=== PATIENT | female | born 1975 | race African-American/Black ===

== ENCOUNTER 2016-05-18 19:35 | Emergency (ER) | payer MEDICAID, OTHER ==
[~2016-05-18 19:35] MED LIST: IBUP800T23 PO; ROBA750T PO
[2016-05-18 19:57] VITALS: BP 131/73; PULSE 55; RESP 16; TEMP 97.8; O2SAT 100
[2016-05-18] MEDS ORDERED: SODIUM CHLOR 0.9% 1000 ML INJ 1,000 ML IV ONE (21:20)
[2016-05-18] MEDS ORDERED: PROCHLORPERAZINE INJ 10 MG/2 ML VIAL IVP ONE (21:30)
[2016-05-18] MEDS ORDERED: diphenhydrAMINE HCL 50 MG/ML VIAL IVP ONE (21:30)
--- NOTE | 2016-05-18 21:41 | PD ---
HPI Chief Complaint: Headache Time Seen by Provider: 21:37 Travel History International Travel<30 days: No Contact w/Intl Traveler<30days: No Traveled to known affect area: No History of Present Illness HPI 41-year-old female that presents to the ED for evaluation of headache. Patient states that she has a history migraine headaches and this feels similar to her usual migraines. Per patient the headache is severe 7 out of 10. Causes photophobia. Per patient she's had a headache since early this morning. Per patient she had to work today showed she was not able to take her usual medication for her migraine headaches which usually Excedrin. Per patient she was able to get out of work and when she went home she took a Lortab with some food and she went to take a shower. Per patient after the shower she started feeling very lightheaded as if the room was spinning. Per patient she started to feel nauseous and she went into the toilet and threw up in all she can remember is that she started feeling weak and apparently one of her family members contacted the embolus at the time as she apparently passed out. She states that overall her headache feels the same with the exception that she feels like she is spinning tach comes and goes. She states that she has had no fevers chills or sweats. She states that she has had Lortab in the past. Per patient her headache currently say 10. Amylase has not given her anything other than fluids. She does have allergies to aspirin, dilaudid, PTU, penicillin, Reglan and Synthroid. She denies any numbness, tilling, weakness. PFSH Past Medical History Diminished Hearing: No GERD: Yes Genitourinary: Yes (H/O KIDNEY AND UTI) Headaches: Yes Hypertension: Yes Immunizations Current: Yes Migraines: Yes Thyroid Disease: Yes (HYPERTHYROID/TREATED WITH IODINE RADIATION 09/08) PNEUMOCCOCAL Vaccine (Year): 2 ?: Not : 2 Para: 2 Tubal Ligation: Yes Past Surgical History Section: Yes (X 2) Gynecologic Surgery: Yes (C-SECT X 2) Other Surgery: Yes (LYMPH NODE BIOPSY R BREAST.) Social History Alcohol Use: Yes (OCCASSIONAL) Tobacco Use: No Substance Use: No Allergies-Medications (Allergen,Severity, Reaction): Coded Allergies: Aspirin (Verified Allergy, Severe, HEADACHE, 4/12/17) Dilaudid (Verified Allergy, Severe, ITCHING, 05/18/16) Penicillin (Verified Allergy, Severe, Anaphylaxis, 05/18/16) Reglan (Verified Allergy, Severe, 05/18/16) Synthroid (Verified Allergy, Severe, 05/18/16) Uncoded Allergies: PTU (Allergy, Severe, 03/17/11) Reported Meds & Prescriptions Reported Meds & Active Scripts Active Robaxin (Methocarbamol) 750 Mg Tab 750 Mg PO QID PRN 2 tabs QID for 2 days, then 1 tab QID thereafter Ibuprofen 800 Mg Tab 800 Mg PO Q8H Review of Systems Except as stated in HPI: all other systems reviewed are Neg Physical Exam Narrative GENERAL: SKIN: Warm and dry. HEAD: Atraumatic. Normocephalic. EYES: Pupils equal and round 4 mm reactive to light and accommodation.. No scleral icterus. No injection or drainage. ENT: No nasal bleeding or discharge. Mucous membranes pink and moist. Tongue is midline. No uvula deviation. NECK: Trachea midline. No JVD. CARDIOVASCULAR: Regular rate and rhythm. No murmurs, S3, S4. RESPIRATORY: No accessory muscle use. Clear to auscultation. Breath sounds equal bilaterally. GASTROINTESTINAL: Abdomen soft, non-tender, nondistended. Hepatic and splenic margins not palpable. MUSCULOSKELETAL: Extremities without clubbing, cyanosis, or edema. No obvious deformities. Full range of motion of the upper and lower extremities bilaterally. 2+ pulses bilaterally. No lumbar, thoracic, cervical spine tenderness to palpation. NEUROLOGICAL: Awake and alert. No obvious cranial nerve deficits. Motor grossly within normal limits. Five out of 5 muscle strength in the arms and legs. Normal speech. PSYCHIATRIC: Appropriate mood and affect; insight and judgment normal. Data Data Last Documented VS Vital Signs Date Time Temp Pulse Resp B/P Pulse Ox O2 Delivery O2 Flow Rate FiO2 05/18/16 20:46 18 100 05/18/16 19:57 97.8 55 131/73 Orders Complete Blood Count With Diff (05/18/16 21:20) Basic Metabolic Panel (Bmp) (05/18/16 21:20) Prothrombin Time / Inr (Pt) (05/18/16 21:20) Act Partial Throm Time (Ptt) (05/18/16 21:20) Ct Brain W/O Iv Contrast(Rout) (05/18/16 21:20) Ecg Monitoring (05/18/16 21:20) Iv Access Insert/Monitor (05/18/16 21:20) Oximetry (05/18/16 21:20) Prochlorperazine Inj (Compazine Inj) (05/18/16 21:30) Diphenhydramine Inj (Benadryl Inj) (05/18/16 21:30) Sodium Chlor 0.9% 1000 Ml Inj (Ns 1000 M (05/18/16 21:20) Troponin I (05/18/16 21:20) Electrocardiogram (05/18/16 ) Lorazepam Inj (Ativan Inj) (05/18/16 21:45) Ketorolac Inj (Toradol Inj) (05/18/16 22:00) Labs Laboratory Tests Test 05/18/16 21:45 White Blood Count 6.6 TH/MM3 Red Blood Count 3.94 MIL/MM3 Hemoglobin 8.3 GM/DL Hematocrit 27.4 % Mean Corpuscular Volume 69.4 FL Mean Corpuscular Hemoglobin 21.2 PG Mean Corpuscular Hemoglobin 30.5 % Concent Red Cell Distribution Width 16.4 % Platelet Count 318 TH/MM3 Mean Platelet Volume 7.5 FL Neutrophils (%) (Auto) 72.7 % Lymphocytes (%) (Auto) 18.7 % Monocytes (%) (Auto) 7.2 % Eosinophils (%) (Auto) 0.5 % Basophils (%) (Auto) 0.9 % Neutrophils # (Auto) 4.8 TH/MM3 Lymphocytes # (Auto) 1.2 TH/MM3 Monocytes # (Auto) 0.5 TH/MM3 Eosinophils # (Auto) 0.0 TH/MM3 Basophils # (Auto) 0.1 TH/MM3 CBC Comment AUTO DIFF Sodium Level 141 MEQ/L Potassium Level 3.9 MEQ/L Chloride Level 105 MEQ/L Carbon Dioxide Level 28.6 MEQ/L Anion Gap 7 MEQ/L Blood Urea Nitrogen 9 MG/DL Creatinine 1.05 MG/DL Estimat Glomerular Filtration 70 ML/MIN Rate Random Glucose 103 MG/DL Calcium Level 8.0 MG/DL Troponin I LESS THAN 0.02 NG/ML MDM Medical Decision Making Medical Screen Exam Complete: Yes Emergency Medical Condition: Yes Medical Record Reviewed: Yes Interpretation(s) CBC & BMP Diagram 05/18/16 21:45 EKG shows sinus rhythm with no sign of acute ischemia or arrhythmia. Troponin negative Last Impressions Head CT 05/18/162119 Signed Impressions: Service Date/Time: Wednesday, May 18, 2016 21:31 - CONCLUSION: No acute intracranial abnormality. Mild sinus disease. Edison Cohen MD Differential Diagnosis Migraine headache versus tension headache versus vertigo versus dehydration versus syncope versus presyncope Narrative Course 41-year-old female that presents to the ED for evaluation of migraine headache and syncope. Patient was properly examined and was found to have signs and symptoms which appeared to consistent more with migraine headache. At this time and do recommend labs and imaging. Patient was given IV fluids and IV medications. Labs and imaging for the most part unremarkable other than for anemia. Coag still pending. Case will be signed out to my attending pending disposition. Vu Toure May 18, 2016 21:41
--- NOTE | 2016-05-18 21:43 | RADRPT ---
EXAM DATE/TIME: 05/18/2016 21:31 [facility] COMPARISON: No previous studies available for comparison. INDICATIONS : Headaches. RADIATION DOSE: 38.09 CTDIvol (mGy) MEDICAL HISTORY : Hypertension. Hyperthyroidism. SURGICAL HISTORY : None. ENCOUNTER: Initial ACUITY: 1 day PAIN SCALE: 10/10 LOCATION: Bilateral cranial TECHNIQUE: Multiple contiguous axial images were obtained of the head. Using automated exposure control and adj ustment of the mA and/or kV according to patient size, radiation dose was kept as low as reasonably a chievable to obtain optimal diagnostic quality images. FINDINGS: CEREBRUM: The ventricles are normal for age. No evidence of midline shift, mass lesion, hemorrhage or acute in farction. No extra-axial fluid collections are seen. POSTERIOR FOSSA: The cerebellum and brainstem are intact. The 4th ventricle is midline. The cerebellopontine angle i s unremarkable. EXTRACRANIAL: Mild mucoperiosteal thickening and trace fluid seen of the maxillary air cells. Mild mucoperiosteal t hickening of the sphenoid air cells. SKULL: The calvaria is intact. No evidence of skull fracture. CONCLUSION: No acute intracranial abnormality. Mild sinus disease. Edison Cohen MD on May 18, 2016 at 21:40 Board Certified Radiologist. This report was verified electronically.
[2016-05-18] MEDS ORDERED: LORazepam 2 MG/ML VIAL IV PUSH ONE (21:45)
[2016-05-18] MEDS ORDERED: KETOROLAC TROMETHAMINE 30 MG/ML (IVP) VIAL IV PUSH ONE (22:00)
[2016-05-18 22:13] LABS: AUTOMATED NEUTROPHIL # 4.8 TH/MM3 (1.8-7.7); BASOPHIL # 0.1 TH/MM3 (0-0.2); BASOPHIL % 0.9 % (0.0-2.0); EOSINOPHIL % 0.5 % (0.0-4.0); HEMATOCRIT 27.4 % (35.0-46.0); LYMPH % 18.7 % (9.0-44.0); LYMPHOCYTE # 1.2 TH/MM3 (1.0-4.8); MEAN CELL VOLUME 69.4 FL (80.0-100.0); MEAN CORPUSCULAR HEMOGLOBIN 21.2 PG (27.0-34.0); MEAN CORPUSCULAR HGB CONC 30.5 % (32.0-36.0); MONO % 7.2 % (0.0-8.0); NEUT % 72.7 % (16.0-70.0); PLATELET COUNT 318 TH/MM3 (150-450); RED BLOOD COUNT 3.94 MIL/MM3 (4.00-5.30); RED CELL DISTRIBUTION WIDTH 16.4 % (11.6-17.2); WHITE BLOOD COUNT 6.6 TH/MM3 (4.0-11.0)
[2016-05-18 22:14] LABS: HEMO FLAGS AUTO DIFF
[2016-05-18 22:35] LABS: ANION GAP 7 MEQ/L (5-15); BICARBONATE 28.6 MEQ/L (21.0-32.0); BLOOD UREA NITROGEN 9 MG/DL (7-18); CHLORIDE 105 MEQ/L (98-107); GLOMERULAR FILTRATION RATE 70 ML/MIN (>89); POTASSIUM 3.9 MEQ/L (3.5-5.1); SODIUM (NA) 141 MEQ/L (136-145)
[2016-05-18 22:44] LABS: ACANTHOCYTES 1+ (NORMAL); OVALOCYTES 1+ (NORMAL); PLATELET ESTIMATE SMEAR NORMAL (NORMAL); PLATELET MORPHOLOGY NORMAL (NORMAL); SCAN/DIFF AUTO DIFF CONFIRMED
[2016-05-18 22:47] LABS: APTT (PATIENT) 20.5 SEC (24.3-30.1); PROTHROMBIN TIME - PATIENT 10.6 SEC (9.8-11.6)
--- NOTE | 2016-05-19 01:53 | PD ---
Data Data Last Documented VS Vital Signs Date Time Temp Pulse Resp B/P Pulse Ox O2 Delivery O2 Flow Rate FiO2 05/18/16 20:46 18 100 05/18/16 19:57 97.8 55 131/73 Orders Complete Blood Count With Diff (05/18/16 21:20) Basic Metabolic Panel (Bmp) (05/18/16 21:20) Prothrombin Time / Inr (Pt) (05/18/16 21:20) Act Partial Throm Time (Ptt) (05/18/16 21:20) Ct Brain W/O Iv Contrast(Rout) (05/18/16 21:20) Ecg Monitoring (05/18/16 21:20) Iv Access Insert/Monitor (05/18/16 21:20) Oximetry (05/18/16 21:20) Prochlorperazine Inj (Compazine Inj) (05/18/16 21:30) Diphenhydramine Inj (Benadryl Inj) (05/18/16 21:30) Sodium Chlor 0.9% 1000 Ml Inj (Ns 1000 M (05/18/16 21:20) Troponin I (05/18/16 21:20) Electrocardiogram (05/18/16 ) Lorazepam Inj (Ativan Inj) (05/18/16 21:45) Ketorolac Inj (Toradol Inj) (05/18/16 22:00) Labs Laboratory Tests Test 05/18/16 21:45 White Blood Count 6.6 TH/MM3 Red Blood Count 3.94 MIL/MM3 Hemoglobin 8.3 GM/DL Hematocrit 27.4 % Mean Corpuscular Volume 69.4 FL Mean Corpuscular Hemoglobin 21.2 PG Mean Corpuscular Hemoglobin 30.5 % Concent Red Cell Distribution Width 16.4 % Platelet Count 318 TH/MM3 Mean Platelet Volume 7.5 FL Neutrophils (%) (Auto) 72.7 % Lymphocytes (%) (Auto) 18.7 % Monocytes (%) (Auto) 7.2 % Eosinophils (%) (Auto) 0.5 % Basophils (%) (Auto) 0.9 % Neutrophils # (Auto) 4.8 TH/MM3 Lymphocytes # (Auto) 1.2 TH/MM3 Monocytes # (Auto) 0.5 TH/MM3 Eosinophils # (Auto) 0.0 TH/MM3 Basophils # (Auto) 0.1 TH/MM3 CBC Comment AUTO DIFF Differential Comment AUTO DIFF CONFIRMED Platelet Estimate NORMAL Platelet Morphology Comment NORMAL Ovalocytes 1+ Acanthocytes 1+ Prothrombin Time 10.6 SEC Prothromb Time International 1.0 RATIO Ratio Activated Partial 20.5 SEC Thromboplast Time Sodium Level 141 MEQ/L Potassium Level 3.9 MEQ/L Chloride Level 105 MEQ/L Carbon Dioxide Level 28.6 MEQ/L Anion Gap 7 MEQ/L Blood Urea Nitrogen 9 MG/DL Creatinine 1.05 MG/DL Estimat Glomerular Filtration 70 ML/MIN Rate Random Glucose 103 MG/DL Calcium Level 8.0 MG/DL Troponin I LESS THAN 0.02 NG/ML [facility] Medical Record Reviewed: Yes Supervised Visit with DYLAN: Yes Narrative Course I, Dr. Fields, have reviewed the advance practice practitioner's documentation and am in agreement, met with the patient face to face, made the diagnosis, and the medical decision making was done by me. *My assessment and Findings: Cephalgia Patient reevaluated, patient feeling much better. Patient reports complete resolution of symptoms at this time. Signs and symptoms of when to return to the emergency room was reviewed with patient in detail. Patient will follow-up with primary care doctor return to emergency room as needed. Diagnosis Primary Impression: Cephalgia Qualified Code: R51 - Nonintractable headache, unspecified chronicity pattern , unspecified headache type Patient Instructions: General Instructions Additional Instruction: Please follow-up with your primary care doctor Return to the emergency room as needed Med/Other Pt SpecificInfo: Prescription(s) given Disposition: 01 DISCHARGE HOME Condition: Stable Rosy Fields DO May 19, 2016 01:53
[2016-05-19 02:02] VITALS: BP 125/70
== END 2016-05-19 02:11 | disposition home or self-care (01) ==
LOC: NEPE 19:35
DX: R51 Headache (principal); R53.1 Weakness; K21.9 Gastro-esophageal reflux disease without esophagitis; I10 Essential (primary) hypertension; Z79.899 Other long term (current) drug therapy
CPT/HCPCS: 70450; 80048; 84484; 85025; 85610; 85730; 96361; 96374; 96375; 99284; J0780; J1200; J7030

== ENCOUNTER 2016-07-22 09:49 | Emergency (ER) | payer BC, MEDICAID ==
[~2016-07-22] VITALS: Ht 160 cm; Wt 86.3 kg
[2016-07-22 10:05] VITALS: BP 133/85; PULSE 78; RESP 16; TEMP 98.1; O2SAT 100
[2016-07-22 10:18] LABS: BLOOD, URINE LARGE (NEG); GLUCOSE,URINE NEG (NEG); KETONE, URINE NEG (NEG); NITRITE,URINE NEG (NEG); PH, URINE 6.5 (5.0-8.5)
[2016-07-22 10:24] LABS: METHOD OF COLLECTION CLEAN CATCH; URINE COLOR YELLOW (YELLW/STRAW)
[2016-07-22 10:25] LABS: COMMENT (UR) CULTURE INDICATED; CULTURE IF INDICATED CULTURE INDICATED; RBC, URINE INNUM /hpf (0-3); SQUAMOUS EPITHELIAL CELL URINE > 8 /hpf (0-5)
[2016-07-22] MEDS ORDERED: HYDR-3535 PO (10:30)
[2016-07-22] MEDS ORDERED: DIVA250ER PO (10:30)
[2016-07-22] MEDS ORDERED: MACR100C2 PO (10:57)
[2016-07-22] MEDS ORDERED: BUTA1CAP PO (10:57)
[2016-07-22] MEDS ORDERED: PHEN0.4T PO (10:57)
--- NOTE | 2016-07-22 10:57 | PD ---
HPI . Dysuria Chief Complaint: Complaint Time Seen by Provider: 10:49 Travel History International Travel<30 days: No Contact w/Intl Traveler<30days: No Traveled to known affect area: No History of Present Illness HPI Patient presents with the chief complaint of dysuria. Onset was last night. She has subsequently developed hematuria. She urgency with very little urine output. She has suprapubic pressure. She has not run a fever nor has she had any nausea or vomiting. She does not have any flank pain. She reports no modifying symptoms. Her discomfort is rated as 8/10. 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 PFSH Past Medical History Diminished Hearing: No GERD: Yes Genitourinary: Yes (H/O KIDNEY AND UTI) Headaches: Yes Hypertension: Yes Immunizations Current: Yes Migraines: Yes Thyroid Disease: Yes (HYPERTHYROID/TREATED WITH IODINE RADIATION 09/08) Tetanus Vaccination: Unknown PNEUMOCCOCAL Vaccine (Year): 2 ?: Not LMP: 07/16/16 : 2 Para: 2 Tubal Ligation: Yes Past Surgical History Section: Yes (X 2) Gynecologic Surgery: Yes (C-SECT X 2) Other Surgery: Yes (LYMPH NODE BIOPSY R BREAST.) Social History Alcohol Use: Yes (OCCASSIONAL) Tobacco Use: No Substance Use: No Allergies-Medications (Allergen,Severity, Reaction): Coded Allergies: Aspirin (Verified Allergy, Severe, HEADACHE, 07/22/16) Dilaudid (Verified Allergy, Severe, ITCHING, 07/22/16) Penicillin (Verified Allergy, Severe, Anaphylaxis, 07/22/16) Reglan (Verified Allergy, Severe, 07/22/16) Synthroid (Verified Allergy, Severe, 07/22/16) Uncoded Allergies: PTU (Allergy, Severe, 07/22/16) . Reported Meds & Prescriptions Reported Meds & Active Scripts Active Reported Lortab (Hydrocodone-Acetaminophen) 10-325 Mg Tab 1 Tab PO Q4H PRN Depakote ER (Divalproex Sodium) 250 Mg Michelle 250 Mg PO DAILY Review of Systems Except as stated in HPI: all other systems reviewed are Neg General / Constitutional: No: Fever, Chills Eyes: No: Blurred Vision HENT: Positive: Headaches (daily headaches for the last several months. They are unrelieved by Depakote and Lortab.) Gastrointestinal: No: Nausea, Vomiting, Diarrhea Genitourinary: Positive: Urgency, Frequency, Dysuria, Hematuria, Decreased Urinary Output Physical Exam Narrative GENERAL: Awake and alert and in no acute distress. SKIN: Warm and dry. HEAD: Atraumatic. Normocephalic. EYES: Pupils equal and round. Extraocular movements are intact. NECK: Trachea midline. Neck is supple. CARDIOVASCULAR: Regular rate and rhythm. RESPIRATORY: No accessory muscle use. GI/: No CVA tenderness. Suprapubic tenderness. MUSCULOSKELETAL: No obvious deformities. No edema. NEUROLOGICAL: Awake and alert. No obvious cranial nerve deficits. Motor grossly within normal limits. Normal speech. Normal gait. PSYCHIATRIC: Appropriate mood and affect; insight and judgment normal. Data Data Last Documented VS Vital Signs Date Time Temp Pulse Resp B/P Pulse Ox O2 Delivery O2 Flow Rate FiO2 07/22/16 10:05 98.1 78 16 133/85 100 Orders Urinalysis - C+S If Indicated (07/22/16 10:05) Ed Urine Pregnancytest Poc (07/22/16 10:05) Urine Culture (07/22/16 10:10) Labs Laboratory Tests Test 07/22/16 10:10 Urine Collection Type CLEAN CATCH Urine Color YELLOW Urine Turbidity SLIGHT Urine pH 6.5 Urine Specific [place] 1.028 Urine Protein 100 mg/dL Urine Glucose (UA) NEG mg/dL Urine Ketones NEG mg/dL Urine Occult Blood LARGE Urine Nitrite NEG Urine Bilirubin NEG Urine Leukocyte Esterase MOD Urine RBC INNUM /hpf Urine WBC 50-99 /hpf Urine Squamous Epithelial > 8 /hpf Cells Microscopic Urinalysis Comment CULTURE INDICATED Urine Collection Time 10:10 [facility] Medical Decision Making Medical Screen Exam Complete: Yes Emergency Medical Condition: Yes Differential Diagnosis Final differential diagnosis of urinary symptoms includes but is not limited to UTI, kidney stone, pyelonephritis, bacterial vaginosis, yeast infection, urinary retention Narrative Course Patient presents for treatment of a probable urinary tract infection. She also reports daily headaches which are unrelieved by Depakote and Lortab. She is interested in trying something different. Laboratory Tests Test 07/22/16 10:10 Urine Collection Type CLEAN CATCH Urine Color YELLOW Urine Turbidity SLIGHT Urine pH 6.5 Urine Specific [place] 1.028 Urine Protein 100 mg/dL Urine Glucose (UA) NEG mg/dL Urine Ketones NEG mg/dL Urine Occult Blood LARGE Urine Nitrite NEG Urine Bilirubin NEG Urine Leukocyte Esterase MOD Urine RBC INNUM /hpf Urine WBC 50-99 /hpf Urine Squamous Epithelial > 8 /hpf Cells Microscopic Urinalysis Comment CULTURE INDICATED Urine Collection Time 10:10 I will treat her UTI with Macrobid and Pyridium. I will give her a prescription for Fioricet for her headaches. She does have a follow-up appointment with her doctor next week. She will let her doctor know whether or not the Fioricet helps. Diagnosis Primary Impression: Urinary tract infection Qualified Code: N30.01 - Acute cystitis with hematuria Additional Impression: Cephalgia Qualified Code: G44.321 - Intractable chronic post-traumatic headache Patient Instructions: General Instructions, Urinary Tract Infection in Women ( [place]) Med/Other Pt SpecificInfo: Prescription(s) given Scripts [id number]-Edwvaarx (Fioricet)50-300-40 Mg Cap1-2 Cap PO Q6H PRN ( HEADACHE) #30 CAP Ref 0 Prov:Shasha Hernandez MD 07/22/16 Phenazopyridine (Pyridium)100 Mg [id number] Mg PO Q8H PRN (DYSURIA) #10 TAB Ref 0 Prov:Shasha Hernandez MD 07/22/16 Nitrofurantoin Monohydrate Macrocrystals (Macrobid)100 Mg [id number] Mg PO BID 5 Days Ref 0 Prov:Shasha Hernandez MD 07/22/16 Disposition: 01 DISCHARGE HOME Condition: Stable Shasha Hernandez MD Jul 22, 2016 10:57
== END 2016-07-22 11:04 | disposition home or self-care (01) ==
LOC: PHED 09:49 → PHEFT 11:04
DX: N30.01 Acute cystitis with hematuria (principal); G44.321 Chronic post-traumatic headache, intractable; I10 Essential (primary) hypertension; E05.90 Thyrotoxicosis, unspecified without thyrotoxic crisis or storm; B96.20 Unspecified Escherichia coli [E. coli] as the cause of diseases classified elsewhere
CPT/HCPCS: 81001; 84703; 87077; 87086; 87186; 99284

== ENCOUNTER 2016-09-15 19:48 | Emergency (ER) | payer BC, MEDICAID ==
[~2016-09-15] VITALS: Ht 160 cm; Wt 88.2 kg
[~2016-09-15 19:48] MED LIST changes: +BUTA1CAP PO; -IBUP800T23 PO; +MACR100C2 PO; +PHEN0.4T PO; -ROBA750T PO
[2016-09-15 19:57] VITALS: BP 136/89; PULSE 84; RESP 16; TEMP 98.3; O2SAT 100
[2016-09-15 20:25] VITALS: BP_SYST 125; BP_SYST 146; BP_SYST 149; BP_DIAS 88; BP_DIAS 94; BP_DIAS 96; RESP 18; RESP 20
--- NOTE | 2016-09-15 20:26 | PD ---
HPI Chief Complaint: Dizziness Time Seen by Provider: 20:17 Travel History International Travel<30 days: No Contact w/Intl Traveler<30days: No Traveled to known affect area: No History of Present Illness HPI 41-year-old female with history of anemia migraines and hypothyroidism presents to the emergency department for complaint of dizziness and heavy vaginal bleeding since yesterday. Patient states her normal menses began on Monday and typically lasts 3 days however after 3 days of bleeding she stopped bleeding and then started having heavy bleeding yesterday; reportedly at 2 AM she saturated 5 pads. Patient states she contacted her primary care physician's office and on the answering machine was told that someone would contact her within 24 hours. Patient states due to ongoing heavy vaginal bleeding she decided to come to the emergency room. Patient states she's been told by her primary care provider that she needs to have a pelvic ultrasound. Patient is 3 para 2 AB 0. Patient is status post 2 C-sections and a tubal ligation. Patient denies heavy vaginal bleeding in the past. Patient states due to heavy vaginal bleeding she has noted some dizziness today. Patient's had no near-syncope or syncope chest pain palpitations sweats or shortness of breath. Patient denies any abdominal pain or pelvic pain. Patient denies dysuria frequency or urgency. Patient's had no fever or chills. Patient rates discomfort 0/10 intensity. PFSH Past Medical History Narrative Medical Anemia, migraine, hypothyroidism, GERD, UTI; 2, tube ligation, elbow surgery, radioactive iodine treatment for hyperthyroidism; no tobacco use; nursing notes reviewed Diminished Hearing: No GERD: Yes Genitourinary: Yes (H/O KIDNEY AND UTI) Headaches: Yes Hypertension: Yes Immunizations Current: Yes Migraines: Yes Thyroid Disease: Yes (HYPERTHYROID/TREATED WITH IODINE RADIATION 09/08) PNEUMOCCOCAL Vaccine (Year): 2 ?: Not LMP: 09/15/16 : 2 Para: 2 Tubal Ligation: Yes Past Surgical History Section: Yes (X 2) Gynecologic Surgery: Yes (C-SECT X 2) Other Surgery: Yes (LYMPH NODE BIOPSY R BREAST.) Social History Alcohol Use: Yes (OCCASSIONAL) Tobacco Use: No Substance Use: No Allergies-Medications (Allergen,Severity, Reaction): Coded Allergies: Aspirin (Verified Allergy, Severe, HEADACHE, 09/15/16) Dilaudid (Verified Allergy, Severe, ITCHING, 09/15/16) Penicillin (Verified Allergy, Severe, Anaphylaxis, 09/15/16) Reglan (Verified Allergy, Severe, 09/15/16) Synthroid (Verified Allergy, Severe, 09/15/16) Uncoded Allergies: PTU (Allergy, Severe, 07/22/16) . Reported Meds & Prescriptions Reported Meds & Active Scripts Active Zofran Odt (Ondansetron Odt) 4 Mg Tab 4 Mg SL Q6HR PRN Lortab (Hydrocodone-Acetaminophen) 5-325 Mg Tab 1 Tab PO Q6H PRN Anaprox DS (Naproxen Sodium) 550 Mg Tab 550 Mg PO Q12HR PRN Reported Excedrin Migraine Caplet (Aspirin/Acetaminophen/Caffeine) 1 Each Tablet 2 Cap PO BID Lortab (Hydrocodone-Acetaminophen) 10-325 Mg Tab 1 Tab PO Q6H PRN Ferrous Sulfate 325 Mg (65 Mg Iron) Tablet 325 Mg PO BIDPC Review of Systems Except as stated in HPI: all other systems reviewed are Neg General / Constitutional: No: Fever, Chills HENT: No: Congestion Cardiovascular: No: Chest Pain or Discomfort Respiratory: No: Shortness of Breath Gastrointestinal: No: Nausea, Vomiting, Abdominal Pain Genitourinary: Positive: Vaginal Bleeding, No: Frequency, Pelvic Pain Musculoskeletal: No: Pain Skin: No Rash Neurologic: Positive: Dizziness, No: Weakness Psychiatric: No: Anxiety Hematologic/Lymphatic: No: Lymph Node Enlargement Physical Exam Narrative GENERAL: Well-developed well-nourished female in no acute distress no respiratory distress; triage vital signs within normal limits SKIN: Warm and dry. HEAD: Normocephalic. EYES: No scleral icterus. No injection or drainage. NECK: Supple, trachea midline. No JVD or lymphadenopathy. CARDIOVASCULAR: Regular rate and rhythm without murmurs, gallops, or rubs. RESPIRATORY: Breath sounds equal bilaterally. No accessory muscle use. GASTROINTESTINAL: Abdomen soft, non-tender, nondistended. Pelvic exam: External exam no blood no lesions no induration; speculum exam can't blood in vaginal vault no clots no tissue cervical os closed; bimanual exam no adnexal mass or tenderness no uterine enlargement or cervical motion tenderness. MUSCULOSKELETAL: No cyanosis, or edema. BACK: Nontender without obvious deformity. No CVA tenderness. Data Data Last Documented VS Vital Signs Date Time Temp Pulse Resp B/P Pulse Ox O2 Delivery O2 Flow Rate FiO2 09/15/16 20:25 Room Air 09/15/16 20:25 79 18 146/96 72 18 149/94 92 20 125/88 09/15/16 19:57 98.3 100 Orders Complete Blood Count With Diff (09/15/16 20:17) Basic Metabolic Panel (Bmp) (09/15/16 20:17) Type And Screen (09/15/16 20:17) Iv Access Insert/Monitor (09/15/16 20:17) Ed Urine Pregnancytest Poc (09/15/16 20:17) Orthostatic Vital Signs (09/15/16 20:17) Magnesium (Mg) (09/15/16 20:17) Sodium Chlor 0.9% 1000 Ml Inj (Ns 1000 M (09/15/16 21:15) Potassium Chloride (Kcl) (09/15/16 21:15) Labs Laboratory Tests Test 09/15/16 20:30 White Blood Count 6.2 TH/MM3 Red Blood Count 3.86 MIL/MM3 Hemoglobin 8.6 GM/DL Hematocrit 27.7 % Mean Corpuscular Volume 71.8 FL Mean Corpuscular Hemoglobin 22.4 PG Mean Corpuscular Hemoglobin 31.1 % Concent Red Cell Distribution Width 20.5 % Platelet Count 351 TH/MM3 Mean Platelet Volume 7.2 FL Neutrophils (%) (Auto) 43.7 % Lymphocytes (%) (Auto) 45.7 % Monocytes (%) (Auto) 7.8 % Eosinophils (%) (Auto) 2.2 % Basophils (%) (Auto) 0.6 % Neutrophils # (Auto) 2.7 TH/MM3 Lymphocytes # (Auto) 2.9 TH/MM3 Monocytes # (Auto) 0.5 TH/MM3 Eosinophils # (Auto) 0.1 TH/MM3 Basophils # (Auto) 0.0 TH/MM3 CBC Comment AUTO DIFF Differential Comment AUTO DIFF CONFIRMED Platelet Estimate NORMAL Platelet Morphology Comment NORMAL Tear Drop Cells 1+ Ovalocytes 2+ Sodium Level 138 MEQ/L Potassium Level 3.4 MEQ/L Chloride Level 105 MEQ/L Carbon Dioxide Level 26.1 MEQ/L Anion Gap 7 MEQ/L Blood Urea Nitrogen 8 MG/DL Creatinine 1.00 MG/DL Estimat Glomerular Filtration 74 ML/MIN Rate Random Glucose 96 MG/DL Calcium Level 8.4 MG/DL Magnesium Level 2.0 MG/DL Blood Type O POSITIVE MDM Medical Decision Making Medical Screen Exam Complete: Yes Emergency Medical Condition: Yes Medical Record Reviewed: Yes Interpretation(s) CBC & BMP Diagram 09/15/16 20:30 Vital Signs Date Time Temp Pulse Resp B/P Pulse Ox O2 Delivery O2 Flow Rate FiO2 09/15/16 20:25 Room Air 09/15/16 20:25 79 18 146/96 72 18 149/94 92 20 125/88 09/15/16 19:57 98.3 84 16 136/89 100 POC hcg: negative (O+) Differential Diagnosis Dysfunctional uterine bleeding, perimenopausal bleeding, , anemia Narrative Course IV access obtained specimens collected and sent for resulting Patient with orthostatic vital sign changes supine to standing with complaint of dizziness; patient administered 1 L normal saline Serum hemoglobin 8.6 last comparison hemoglobin 8.3 in 05/2016 Patient noted to have mild hypokalemia oral potassium supplement administered Patient with minimal to no active bleeding identified on pelvic exam and patient had commented that when she had removed her tampon there is minimal blood on the tampon and no clots passed with removal of the tampon. Patient states that she has noted that heavy bleeding is intermittent and not continuous. @ 9:35 PM c/o cramping pelvic pain does not want Toradol --reports it "makes her feel strange" but denies an allergy to the medication. @ 10:10 PM no bleeding; potassium replaced; iv fluids administered. HGB stable - - patient stable for outpatient management Diagnosis Primary Impression: Dysfunctional uterine bleeding Additional Impression: Anemia Qualified Code: D50.0 - Iron deficiency anemia due to chronic blood loss Referrals: [facility] Assistant call for appointment scallop dredger PIT FURNACE OPERATOR: Dr Sousa Primary Care Physician 1 day Patient Instructions: General Instructions Departure Forms: Tests/Procedures, Work Release Special Instructions: no work x 1 day Additional Instructions: Increase fluid hydration Follow-up with your primary care provider call office in a.m. to schedule appointment times one day and follow-up with skirt clipper Add potassium containing foods and beverages to dietary intake Continue iron replacement therapy Return to the emergency department for any concerns or change in condition Med/Other Pt SpecificInfo: Prescription(s) given Scripts Ondansetron Odt (Zofran Odt)4 Mg Tab4 Mg SL Q6HR PRN (Nausea/Vomiting) #10 TAB Ref 0 Prov:Katie Cunningham MD 09/15/16 Hydrocodone-Acetaminophen (Lortab)5-325 Mg Tab1 Tab PO Q6H PRN (PAIN) #7 TAB Ref 0 Prov:Katie Cunningham MD 09/15/16 Naproxen Sodium DS (Anaprox DS)550 Mg [id number] Mg PO Q12HR PRN (PAIN GREATER THAN 5) #10 TAB Ref 0 Prov:Katie Cunningham MD 09/15/16 Disposition: 01 DISCHARGE HOME Condition: Stable Katie Cunningham MD Sep 15, 2016 20:26
[2016-09-15 20:42] LABS: AUTOMATED NEUTROPHIL # 2.7 TH/MM3 (1.8-7.7); BASOPHIL % 0.6 % (0.0-2.0); EOSINOPHIL # 0.1 TH/MM3 (0-0.4); EOSINOPHIL % 2.2 % (0.0-4.0); HEMATOCRIT 27.7 % (35.0-46.0); LYMPH % 45.7 % (9.0-44.0); LYMPHOCYTE # 2.9 TH/MM3 (1.0-4.8); MEAN CELL VOLUME 71.8 FL (80.0-100.0); MEAN CORPUSCULAR HEMOGLOBIN 22.4 PG (27.0-34.0); MEAN CORPUSCULAR HGB CONC 31.1 % (32.0-36.0); MONO % 7.8 % (0.0-8.0); NEUT % 43.7 % (16.0-70.0); PLATELET COUNT 351 TH/MM3 (150-450); RED BLOOD COUNT 3.86 MIL/MM3 (4.00-5.30); RED CELL DISTRIBUTION WIDTH 20.5 % (11.6-17.2); WHITE BLOOD COUNT 6.2 TH/MM3 (4.0-11.0)
[2016-09-15 20:44] LABS: HEMO FLAGS AUTO DIFF
[2016-09-15] MEDS ORDERED: HYDR-3535 PO (20:47)
[2016-09-15] MEDS ORDERED: FERR325T8 PO (20:47)
[2016-09-15] MEDS ORDERED: EXCETAB30 PO (20:48)
[2016-09-15 20:49] LABS: POTASSIUM 3.4 MEQ/L (3.5-5.1)
[2016-09-15 20:52] LABS: BICARBONATE 26.1 MEQ/L (21.0-32.0)
[2016-09-15 20:57] LABS: OVALOCYTES 2+ (NORMAL); PLATELET ESTIMATE SMEAR NORMAL (NORMAL); PLATELET MORPHOLOGY NORMAL (NORMAL); SCAN/DIFF AUTO DIFF CONFIRMED; TEARDROP RBCS 1+ (NORMAL)
[2016-09-15] MEDS ORDERED: POTASSIUM CHLORIDE 20 MEQ CONTROLLED RELEASE TAB PO ONE (21:15)
[2016-09-15] MEDS ORDERED: SODIUM CHLOR 0.9% 1000 ML INJ 1,000 ML IV ONE (21:15)
[2016-09-15 21:25] VITALS: BP 140/81; PULSE 76; RESP 18; O2SAT 100
[2016-09-15] MEDS ORDERED: ZOFR4TAB3 SL (21:38)
[2016-09-15] MEDS ORDERED: HYDR-3533 PO (21:38)
[2016-09-15] MEDS ORDERED: NAPR550 PO (21:38)
[2016-09-15 22:32] VITALS: BP 126/82
== END 2016-09-15 22:36 | disposition home or self-care (01) ==
LOC: PHED 19:48
DX: N93.8 Other specified abnormal uterine and vaginal bleeding (principal); D50.0 Iron deficiency anemia secondary to blood loss (chronic); E03.9 Hypothyroidism, unspecified; I10 Essential (primary) hypertension; K21.9 Gastro-esophageal reflux disease without esophagitis
CPT/HCPCS: 80048; 83735; 84703; 85025; 86850; 86900; 86901; 96360; 99284; J7030